=== PATIENT | female | born 1965 | race Caucasian/White ===

== ENCOUNTER 2018-10-19 05:55 | Inpatient (IN) | payer BC ==
[~2018-10-19 05:55] MED LIST: Buffered Lidocaine 1% SYRIN* 1 ML/SYRINGE INTRADERM ONE
--- OUTSIDE RECORDS SUMMARY | 2018-10-19 05:58 | XMS REPORT | Continuity of Care Document ---
:1965 External Reference #:[id number] Author Name Maia Gomez Care Team Providers Name Role Phone Dylan Ralph MD Primary Care Physician Unavailable Payers Date Identification Numbers Payment Provider Subscriber Policy Number: [id number] [employer] Alejandra Diana PayID: [id number] [address] [address] [place] [address] Advance Directives Description No Information Available Problems Date Description Provider Status Onset: 06/06/2016 Enthesopathy of knee Jayy Vargas M.D. Active Onset: 06/06/2016 Iliotibial band friction syndrome Jayy Vargas M.D. 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 [employer] Tobacco Use Start: Unknown End: Former Cigarette Smoker 1 33 years Pack Daily Smoking Status Reviewed: 09/27/18 Former Cigarette Smoker 1 33 years Pack Daily ETOH Use Denies alcohol use Tobacco Use Start: Unknown End: Patient is a former smoker quit 11/2016 Unknown Exercise Type/Frequency Exercises sporadically Allergies, Adverse Reactions, Alerts Date Description Reaction Status Severity Comments 06/06/2016 Bactrim Active rash 06/06/2016 Ceclor Active rash 06/06/2016 Amoxicillin Active rash Medications Medication Date Status Form Strength Qnty SIG Indications Ordering Provider Vitamin D-400 Active Tablets 400Unit once a Unknown 00 day Vitamin B Active Tablets 1 by Unknown Complex 00 mouth every day [place] 3 500 Active Capsules 500mg once a Unknown 00 day Escitalopram Active Tablets 10mg once a Ralph, Oxalate 00 day MD Dylan Zyrtec Allergy Active Tablets 10mg 1 by Unknown 00 Dispers mouth as needed Flonase Active Suspension 50mcg/Act 2 puffs Unknown Allergy Relief 00 each nare every in the morning Synthroid Active Tablets 150mcg 1 by Unknown 00 mouth every day Trazodone HCL Active Tablets 50mg 1 by Ralph, 00 mouth one MD Dylan time per day at night Azithromycin 04/01/20 Hx Tablets 250mg 6tabs take 2 Martha 17 - tabs on B. Unknown day [place], 1,then 1 [employer] tab daily Azithromycin 10/01/19 Hx Tablets 250mg 6tabs 2 tabs by Lynnette Fernandes 17 - mouth on MD Tim Unknown day 1, then 1 tablet daily Nystatin-Triam 09/27/19 Hx Cream 583609-2. 15gm 1 unit Lynnette Fernandes cinolone 17 - 1Unit/GM- apply to MD Tim Unknown % affected area twice a day Synthroid Hx Tablets 125mcg 1 by Unknown 00 - mouth 09/28/19 every day 19 Glucosamine & Hx Packet 7900-3428 on hold Unknown Chondroiti 00 - -800mg-mg N/Vitamin D 09/27/19 -Unit Maximum 19 Strength Topiramate Hx Caps 25mg 1 tab Ramo - Sprinkle twice MD Dylan 08/05/19 daily 19 Immunizations Description No Information Available Vital Signs Date Vital Result Comment 09/27/2018 8:36am Height 62 inches 5'2" Weight 207.50 lb Heart Rate 68 /min BP Systolic Sitting 114 mmHg Lue large cuff BP Diastolic Sitting 78 mmHg Lue large cuff Respiratory Rate 20 /min O2 % BldC Oximetry 97 % On Ra BMI (Body Mass Index) 37.9 kg/m2 08/05/2018 9:57am Height 62 inches 5'2" Weight 201.00 lb Heart Rate 92 /min BP Systolic Sitting 124 mmHg BP Diastolic Sitting 80 mmHg O2 % BldC Oximetry 94 % BMI (Body Mass Index) 36.8 kg/m2 Neck Circumference in inches 15.5 11/30/2017 11:26am Height 62 inches 5'2" Weight 190.00 lb Heart Rate 78 /min BP Systolic Sitting 112 mmHg BP Diastolic Sitting 78 mmHg Respiratory Rate 18 /min Body Temperature 99.8 F BMI (Body Mass Index) 34.7 kg/m2 09/26/2016 1:12pm Height 61 inches 5'1" Weight 177.00 lb Heart Rate 74 /min BP Systolic 124 mmHg BP Diastolic 80 mmHg Respiratory Rate 16 /min Body Temperature 98.6 F BMI (Body Mass Index) 33.4 kg/m2 06/06/2016 3:04pm Height 61 inches 5'1" Weight 175.00 lb Heart Rate 80 /min BP Systolic Recheck 128 mmHg BP Diastolic Recheck 84 mmHg Respiratory Rate 16 /min Body Temperature 98.0 F BMI (Body Mass Index) 33.1 kg/m2 Results Test Date Facility Test Result H/L Range Note CBC Auto Diff 11/30/2017 [facility] White Blood 8.5 10^3/uL N 3.5-10.[address] [place] [address] [phone] Red Blood Count 5.01 10^6/uL N 4.0-5.4 Hemoglobin 13.7 g/dL N 12.0-16.0 Hematocrit 41 % N 35-47 Mean Corpuscular Volume 82 fL N 80-97 Mean Corpuscular Hemoglobin 27 pg N 27-31 Mean Corpuscular HGB Conc 33 g/dL N 31-36 Red Cell Distribution Width 13 % N 10.5-15 Platelet Count 228 10^3/uL N 150-450 Mean Platelet Volume 7.9 um3 N 7.4-10.4 Abs Neutrophils 5.6 10^3/uL N 1.5-7.7 Abs Lymphocytes 1.9 10^3/uL N 1.0-4.8 Abs Monocytes 0.7 10^3/uL N 0-0.8 Abs Eosinophils 0.2 10^3/uL N 0-0.6 Abs Basophils 0.1 10^3/uL N 0-0.2 Abs Nucleated RBC 0 10^3/uL Granulocyte % 65.4 % N 38-83 Lymphocyte % 22.7 % Low 25-47 Monocyte % 8.4 % High 0-7 Eosinophil % 2.6 % N 0-6 Basophil % 0.9 % N 0-2 Nucleated Red Blood Cells % 0.1 Comp Metabolic Panel 11/30/2017 [facility] Sodium 137 mmol/L Low 139-145 [address] [place] [address] [phone] Potassium 3.5 mmol/L N 3.5-5.0 Chloride 104 mmol/L N 101-111 Co2 Carbon Dioxide 25 mmol/L N 22-32 Anion Gap 8 mmol/L N 2-11 Glucose 86 mg/dL N 70-100 Blood Urea Nitrogen 13 mg/dL N 6-24 Creatinine 0.83 mg/dL N 0.51-0.95 BUN/Creatinine Ratio 15.7 N 8-20 Calcium 9.3 mg/dL N 8.6-10.3 Total Protein 7.5 g/dL N 6.4-8.9 Albumin 4.5 g/dL N 3.2-5.2 Globulin 3.0 g/dL N 2-4 Albumin/Globulin Ratio 1.5 N 1-3 Total Bilirubin 0.30 mg/dL N 0.2-1.0 Alkaline Phosphatase 47 U/L N 34-104 Alt 27 U/L N 7-52 Ast 18 U/L N 13-39 Egfr Non- 72.8 >60 Egfr 93.6 >60 1 Urinalysis Profile 11/30/2017 [facility] Urine Color Yellow [address] [place] [address] [phone] Urine Appearance Clear Urine Specific [place] 1.014 N 1.010-1.030 Urine pH 6.0 N 5-9 Urine Urobilinogen Negative Negative Urine Ketones Negative Negative Urine Protein Negative Negative Urine Leukocytes Negative Negative Urine Blood Negative Negative Urine Nitrite Negative Negative Urine Bilirubin Negative Negative Urine Glucose Negative Negative 1 Because ethnic data is not always readily available, this report includes an eGFR for both -Americans and non- Americans. The National Kidney Disease Education Program (NKDEP) does not endorse the use of the MDRD equation for patients that are not between the ages of 18 and 70, are , have extremes of body size, muscle mass, or nutritional status, or are non- or non-. According to the National Kidney Foundation, irrespective of diagnosis, the stage of the disease is based on the level of kidney function: Stage Description GFR(mL/min/1.73 m(2)) 1 Kidney damage with normal or decreased GFR 90 2 Kidney damage with mild decrease in GFR 60-89 3 Moderate decrease in GFR 30-59 4 Severe decrease in GFR 15-29 5 Kidney failure <15 (or dialysis) Procedures Date Code Description Status 08/18/2018 78166 Diffusing Capacity Completed 08/18/2018 97617 Plethysmography Determination Lung Volumes & Per Airway Completed Resist 08/18/2018 73933 Pulmonary Function><Bronchodil Completed Encounters Type Date Location Provider Dx Diagnosis Office Visit 09/15/2018 [facility] M79.604 Pain in right leg 10:45a Of Jordi Randhawa M.D. Office Visit 08/05/2018 [facility] Casandra Boland, G47.33 Obstructive sleep 10:00a [facility] apnea (adult) [facility] (pediatric) R53.83 Other fatigue E66.09 Other obesity due to excess calories R06.02 Shortness of breath Z68.36 Body mass index (BMI) 36.0-36.9, adult Office Visit 11/30/2017 11:30a Surgical Odilon Crain, R10.11 Right upper [facility] , FACS quadrant pain [facility] Office Visit 09/26/2016 1:00p Surgical Lynnette Dom K64.4 [facility] MD Tim hemorrhoidal skin [facility] tags K64.8 Other hemorrhoids Office Visit 06/06/2016 3:30p Orthopedic Jayy Vargas, M76.31 Iliotibial band Services [facility] Jordi Ko syndrome, right AT [place] leg M76.32 Iliotibial band syndrome, left leg M70.51 Other bursitis of knee, right knee M70.52 Other bursitis of knee, left knee Plan of Treatment 09/27/2018 - Brigitte Mcknight DNP, RN, [employer]ER-BCG47.33 Obstructive sleep apnea ( adult) (pediatric)Comments:02/18/18 HST AHI 8.7/hour, worse supine 15.4/hour, lety oxygen 81% (less than 90% 26 minutes)Follow up:2 months with StephanieRecommendations:Continue PAP device, Benefitting and compliant with treatment. Cleaning Wipe off mask daily (baby wipe-no scent, or warm water) Clean mask, tubing, filter, and water chamber weekly in mild no scent dish soap and water. Hang to dry. If you have any sleepiness while driving you MUST avoid operating a vehicle or machinery. If you have difficulty with your equipment, or need to replace your mask or hoses, please contact your homecare agency. A weight change of 20 pounds or more may have an effect onyour equipment ; if you are experiencing problems please call for an appointment. If you have any further questions, please call the [facility] at [phone].R06.02 Shortness of breathRecommendations:Complaints of SOB going up 1 flight of steps. Moderately reduced diffusion capacity noted on Pulmonary Function Test May be related to obesity as discussed. Alpha-1 result MS- should not indicate any intervention, however the S gene was noted and recommend talking to siblings and children to consider genetic testing. Continue to avoid tobacco (second-hand and personal) (Quit 2017).R53.83 Other fatigueRecommendations:Should improve as you use the CPAP for the apnea treatment and continue to lose weight.Z68.37 Body mass index (BMI) 37.0-37.9, adultRecommendations:Continue with follow-up at bariatric center and plans for surgery.
[2018-10-19] MEDS ORDERED: Dexamethasone IV* 4 MG/ML 1 ML (4 MG) IV SLOW PU ONE (06:00)
[2018-10-19] MEDS ORDERED: Famotidine IV* 10 MG/ML 2 ML (20 mg) IV ONE (06:00)
[2018-10-19] MEDS ORDERED: Lactated Ringers 1000 ML Bag* 1,000 ML IV SCH (06:00)
[2018-10-19] MEDS ORDERED: Dexamethasone IV* 4 MG/ML 1 ML (4 MG) ONE (06:19)
[2018-10-19] MEDS ORDERED: Clindamycin 900 MG/D5W BAG(*) 900 MG/50 ML BAG IVPB ONE (06:20)
[2018-10-19] MEDS ORDERED: Famotidine IV* 10 MG/ML 2 ML (20 mg) ONE (06:21)
[2018-10-19] MEDS ORDERED: Ciprofloxacin 400MG IVPREMIX(* 400 MG/200 ML BAG ONE (06:21)
[2018-10-19] MEDS ORDERED: Buffered Lidocaine 1% SYRIN* 1 ML/SYRINGE INTRADERM ONE (06:21)
[2018-10-19] MEDS ORDERED: Heparin VIAL(*) 5000 UNITS/ML VIAL (FIVE THOUSAND) ONE (06:22)
[2018-10-19] MEDS ORDERED: Bupivacaine 0.25% W/EPI* 10 ML SDV ONE (06:55)
[2018-10-19] MEDS ORDERED: fentaNYL* 50 MCG/ML 2 ML VIAL (100 MCG VIAL) ONE ×3 (07:00→10:06)
[2018-10-19] MEDS ORDERED: Midazolam* 1 MG/ML 2 ML VIAL (2 MG) ONE (07:00)
[2018-10-19] MEDS ORDERED: Sugammadex * 200 MG/2 ML VIAL IV PUSH ONE (07:11)
[2018-10-19] MEDS ORDERED: Rocuronium* 10 MG/ML VIAL ONE ×2 (07:11→08:51)
[2018-10-19] MEDS ORDERED: Ondansetron INJ* 2 MG/ML VIAL ONE ×2 (08:48→11:40)
[2018-10-19] MEDS ORDERED: Propofol* 10 MG/ML 20 ML BTL ONE (08:48)
[2018-10-19] MEDS ORDERED: Lidocaine 2% PF * 5 ML VIAL ONE (08:48)
[2018-10-19] MEDS ORDERED: Ketorolac INJ* 30 MG/ML 1 ML VIAL ONE ×2 (08:48→11:40)
[2018-10-19] MEDS ORDERED: DiMENhydriNATE IV* 50 MG/ML VIAL IV PUSH PRN (09:33)
[2018-10-19] MEDS ORDERED: Naloxone* 0.4 MG/ML 1 ML VIAL IV PRN (09:33)
[2018-10-19] MEDS ORDERED: fentaNYL* 50 MCG/ML 2 ML VIAL (100 MCG VIAL) IV PRN (09:33)
[2018-10-19] MEDS ORDERED: HYDROmorphone INJ1* 1 MG/ML SYRINGE ONE (09:39)
[2018-10-19] MEDS: HYDROmorphone INJ1* 1 MG/ML SYRINGE IV PRN ×2 (09:40→09:52)
[2018-10-19] MEDS ORDERED: HYDROcodone/ACET. 7.5/325 LIQ* 15 ML UDC PO PRN (09:42)
[2018-10-19] MEDS ORDERED: Acetaminophen ADULT LIQ* 650 MG/20.3 ML UDC PO PRN (09:42)
[2018-10-19] MEDS ORDERED: HYDROmorphone INJ1* 1 MG/ML SYRINGE IV SLOW PU PRN ×2 (09:45)
--- NOTE | 2018-10-19 09:48 | OP ---
Operative Report - Blank - Operative Report Date of Operation: 10/19/18 Note: Brief Operative Note Preop Dx: morbid obesity Postop Dx: same Procedure: laparoscopic sleeve gastrectomy Anesthesia: GET Surgeon: Breann Senior Loss Control Specialist: ELLEN Walker; MARLON Steve Fluids: 700 ml RL EBL: 10 ml Specimen: portion of stomach Drains: none Findings: dictated
--- NOTE | 2018-10-19 10:42 | OP ---
CC: Dylan Ralph MD; [facility] OPERATIVE REPORT: DATE OF OPERATION: 10/19/18 DATE OF : 69 SURGEON: Odilon Crain MD. DIRECTOR TRIAL: ELLEN Morejon. ANESTHESIOLOGIST: Dr. Mcgraw. ANESTHESIA: General endotracheal. PRE-OP DIAGNOSIS: Clinically severe obesity. POST-OP DIAGNOSIS: Clinically severe obesity. OPERATIVE PROCEDURE: Laparoscopic sleeve gastrectomy. ESTIMATED BLOOD LOSS: Less than 20 mL. IV FLUIDS: 700 mL crystalloid. SPECIMEN: Portion of stomach. DRAINS: None. COMPLICATIONS: None. COUNTS: The instrument, needle, and sponge counts were correct. DESCRIPTION OF PROCEDURE: The patient was brought to the operating room and placed on the table supi ne. Sequential compression devices were placed on both lower extremities. General anesthesia was ad ministered. She was prepped and draped in the usual sterile fashion. Time-out was performed. Local anesthetic was infiltrated into the skin and soft tissue prior to making each incision. Entry to the abdomen was through a left upper quadrant incision to accommodate a 5-mm optical trocar. Afte r accessing the peritoneal cavity, carbon dioxide was insufflated to a pressure of 15 mmHg. Upon ins pection, it was noted that the trocar had advanced through the omentum and this area was carefully in spected. First, a 12-mm trocar was placed in the supraumbilical midline. Another 12-mm trocar was pl aced in the right upper quadrant. Then the omentum was inspected in the left upper quadrant. There appeared to be no active bleeding or hematoma. The transverse colon and omentum were elevated cephal ad and there appeared to be no hematoma within the mesentery of the transverse colon. At this point, 5-mm trocar was placed in the right upper quadrant laterally and a Negin liver ret ractor was placed percutaneously in the subxiphoid position and used to elevate the left lobe of the liver. The liver did appear fatty infiltrated. The greater curvature of the stomach was skeletonized with a LigaSure with distal margin of the stoma ch, which was 6 cm proximal to the pylorus. The skeletonization include complete division of all the short gastric vessels up to the hiatus. The patient was noted to have a small epigastric fat pad. There were no adhesions within the lesser sac. The splenic artery was quite prominent. Next, the sleeve gastrectomy was performed over a 40-Burmese bougie using sequential firings of the En do LALO stapler with reinforced purple cartridges. Once completed, the bougie was removed without dif ficulty and the resected stomach was retrieved using endoscopic bag through the right upper quadrant port site. After reestablishing pneumoperitoneum, inspection revealed hemostasis to be excellent. In spection into the area of the lesser sac and carefully inspecting the mesentery of the transverse col on and the retroperitoneum did not reveal any evidence of hematoma or other injury. At this point, the right upper quadrant port site was closed with 0 Vicryl in interrupted fashion to approximate the fascia. All remaining trocars were removed under direct visualization and carbon jaylan xide was released. The skin was closed with 4-0 Monocryl in a subcuticular fashion. Then Steri-Stri ps were applied. The patient tolerated this procedure well. She was extubated uneventfully. She wa s transferred to the recovery room in stable condition. [id number]/[facility] #: [id number]
[2018-10-19] MEDS: Ondansetron INJ* 2 MG/ML VIAL IV PRN ×2 (11:43→19:43)
[2018-10-19] MEDS: Ketorolac INJ* 30 MG/ML 1 ML VIAL IV PRN ×2 (11:44→18:09)
[2018-10-19] MEDS: Lactated Ringers 1000 ML Bag* 1,000 ML IV SCH ×2 (11:45→18:04)
[2018-10-19] MEDS: Heparin VIAL(*) 5000 UNITS/ML VIAL (FIVE THOUSAND) SUBCUT SCH ×2 (14:03→22:14)
[2018-10-19] MEDS ORDERED: Scopolamine 1.5 mg* PATCH TRANSDERM SCH (15:00)
[2018-10-19] MEDS: Famotidine IV* 10 MG/ML 2 ML (20 mg) IV SLOW PU SCH (19:44)
[2018-10-20] MEDS: Lactated Ringers 1000 ML Bag* 1,000 ML IV SCH ×2 (00:31→07:46)
[2018-10-20] MEDS: Ketorolac INJ* 30 MG/ML 1 ML VIAL IV PRN ×3 (00:32→21:37)
[2018-10-20] MEDS: Heparin VIAL(*) 5000 UNITS/ML VIAL (FIVE THOUSAND) SUBCUT SCH ×3 (05:41→21:39)
[2018-10-20] MEDS: Famotidine IV* 10 MG/ML 2 ML (20 mg) IV SLOW PU SCH ×2 (07:46→21:38)
--- NOTE | 2018-10-20 08:22 | PN ---
Progress Note - Progress Note Date of Service: 10/20/18 SOAP: Subjective:POD#1 s/p laparoscopic sleeve gastrectomy nausea resolved;passing flatus;good pain control;using inspiron and ambulating [] Objective: Vital Signs Temp 99.1 F 10/20/18 07:50 Pulse 56 10/20/18 07:50 Resp 16 10/20/18 07:50 BP 134/69 10/20/18 07:50 Pulse Ox 96 10/20/18 07:50 Intake & Output 10/19/18 10/20/18 10/20/18 18:59 06:59 18:59 Intake Total 2480 0 Output Total 700 1050 Balance 1780 -1050 Intake: IV Fluids 2480 CIPROFLOXACIN 400 MG 100 CLINDAMYCIN 900 MG 100 LR 2280 Oral 0 0 Output: Urine 700 1050 Other: # Bowel Movements 0 lungs:clear bilat;heart:RRR;abd:+bs,soft,appropriate tenderness,dressings intact ,no erythema;ext:nontender calves,no edema [] Assessment:doing well pod#1 [] Plan:start bariatric clears;reassess later for possible discharge []
[2018-10-20] MEDS: D5W 1/2 NS KCl 20 Meq 1000 ML* 1,000 ML IV SCH ×2 (11:15→20:23)
[2018-10-20] MEDS: Escitalopram * 10 MG TAB PO SCH (11:16)
[2018-10-20] MEDS: Calcium Carbonate CHEW TAB* 500 MG (TUMS) PO PRN ×2 (11:17→14:02)
[2018-10-20] MEDS: Levothyroxine TAB* 150 MCG TAB PO SCH (11:17)
[2018-10-20] MEDS: Pantoprazole IV* 40 MG IV SCH (14:59)
[2018-10-21] MEDS: D5W 1/2 NS KCl 20 Meq 1000 ML* 1,000 ML IV SCH (04:25)
[2018-10-21] MEDS: Heparin VIAL(*) 5000 UNITS/ML VIAL (FIVE THOUSAND) SUBCUT SCH (05:37)
[2018-10-21] MEDS: Levothyroxine TAB* 150 MCG TAB PO SCH (05:37)
[2018-10-21] MEDS: Pantoprazole IV* 40 MG IV SCH (08:49)
[2018-10-21] MEDS: Escitalopram * 10 MG TAB PO SCH (08:49)
[2018-10-21] MEDS: Famotidine IV* 10 MG/ML 2 ML (20 mg) IV SLOW PU SCH (08:49)
[2018-10-21] MEDS: Ketorolac INJ* 30 MG/ML 1 ML VIAL IV PRN (09:23)
[2018-10-21 12:26] VITALS: BP 116/66
== END 2018-10-21 12:00 | disposition home or self-care (01) | DRG 403 ==
LOC: AA 05:55 → SSU 09:42
PROVIDERS: ADMIT Surgery; ATTEND Surgery
PROC: 0DB64Z3 Excision of Stomach, Percutaneous Endoscopic Approach, Vertical (ICD-10-PCS; principal; 2018-10-19 07:30)
DX: E66.01 Morbid (severe) obesity due to excess calories (principal); Z68.37 Body mass index [BMI] 37.0-37.9, adult; G47.33 Obstructive sleep apnea (adult) (pediatric); F41.9 Anxiety disorder, unspecified; F32.9 Major depressive disorder, single episode, unspecified; K21.9 Gastro-esophageal reflux disease without esophagitis; E03.9 Hypothyroidism, unspecified; G43.909 Migraine, unspecified, not intractable, without status migrainosus; Z82.5 Family history of asthma and other chronic lower respiratory diseases; Z90.49 Acquired absence of other specified parts of digestive tract; Z90.711 Acquired absence of uterus with remaining cervical stump; Z80.3 Family history of malignant neoplasm of breast; Z80.1 Family history of malignant neoplasm of trachea, bronchus and lung; Z87.891 Personal history of nicotine dependence
CPT/HCPCS: 88307; 88342; A9270-GY; J0744; J1100; J1170; J1644; J1885; J2250; J2405; J2704; J3010